=== PATIENT | male | born 1955 | race Caucasian/White ===

== ENCOUNTER 2019-12-12 19:56 | Inpatient (IN) ==
[2019-12-12] MEDS ORDERED: *HR* HYDROcodone/Acet 5/325 mg TABLET PO ONE (20:16)
[2019-12-12 21:27] LABS: Basophils % 0.4 %; Eosinophils # 0.2 K/mcL (0.0-0.6); Eosinophils % 2.1 %; Hematocrit 40.8 % (37.5-50.1); Hemoglobin 13.3 g/dL (12.9-16.9); Immature Granulocytes % 0.1 % (0-4); Lymphocytes % 11.5 %; Mean Corpuscular HGB Conc 32.6 g/dL (31.6-35.5); Mean Corpuscular Hemoglobin 30.6 pg (28.0-33.3); Mean Corpuscular Volume 93.8 fL (83.0-100.0); Monocytes # 1.1 K/mcL (0.0-1.3); Neutrophils # 6.2 K/mcL (1.6-8.9); Platelet Count 230 K/mcL (140-400); Red Blood Count 4.35 M/mcL (4.19-5.50); Red Cell Distribution Width 13.4 % (11.5-14.5); Segmented Neutrophils % 72.9 %; White Blood Count 8.5 K/mcL (4.3-11.1)
[2019-12-12 21:35] LABS: INR 1.1; Prothrombin Time 12.2 Seconds (9.4-12.1)
[2019-12-12 21:37] LABS: Activated Partial Thrombo Time 30.6 Seconds (26.0-36.0)
[2019-12-12 21:50] LABS: BUN/Creatinine Ratio 19 (6-26); Blood Urea Nitrogen 17 mg/dL (8-23); Calcium 9.4 mg/dL (8.6-10.3); Carbon Dioxide 31 mEq/L (23-29); Chloride 103 mEq/L (98-107); Creatine Kinase 45 Units/L (30-223); Ethanol < 10 mg/dL (Less than 10); Glucose 102 mg/dL (70-105); Osmolality,Calculated 290 (280-300); Potassium 3.8 mEq/L (3.5-5.1); Sodium 139 mEq/L (136-145); Troponin I < 0.03 ng/mL (< 0.04); eGFR For African Americans > 60 (> 60); eGFR For Non-African Americans > 60 (> 60)
[2019-12-12] MEDS ORDERED: *HR* LORazepam 1 MG TABLET PO ONE (22:24)
[2019-12-12 22:54] LABS: Bilirubin,Urine Negative (Negative); Blood,Urine Negative (Negative); Clarity,Urine Turbid (Clear); Color,Urine Yellow (Yellow); Glucose,Urine (UA) Normal (Normal); Ketones,Urine Negative (Negative); Leukocyte Esterase,Urine Negative (Negative); Nitrite,Urine Negative (Negative); Protein,Urine Negative (Neg-Trace); Specific Gravity,Urine 1.022 (1.010-1.025); Urobilinogen,Urine Normal (Normal)
[2019-12-12] MEDS ORDERED: Naloxone 0.4 MG/ML INJ IVP PRN (22:57)
[2019-12-12 22:58] LABS: Amphetamine Screen,Urine Negative ng/mL (Cutoff=1000); Barbiturate Screen,Urine Negative ng/mL (Cutoff=200); Benzodiazepines Screen,Urine Negative ng/mL (Cutoff=200); Cannabinoid Screen,Urine Negative ng/mL (Cutoff = 50); Cocaine Screen,Urine Negative ng/mL (Cutoff= 300); Opiate Screen,Urine Negative ng/mL (Cutoff=300); Phencyclidine Screen,Urine Negative ng/mL (Cutoff=25)
[2019-12-12 22:59] LABS: Bacteria,Urine None Seen per hpf (None-Few); Hyaline Casts,Urine None Seen per lpf (None-Few); RBC,Urine 0-3 per hpf (0-3); Squamous Epithelial Cell,Urine Many per lpf (None-Few); WBC,Urine 0-3 per hpf (0-3)
[2019-12-12] MEDS ORDERED: 0.9 % Sodium Chloride 1,000 ML IVC SCH (23:00)
[2019-12-12 23:39] LABS: Amorphous Sediment,Urine Moderate per hpf (None-Few)
[2019-12-12] MEDS ORDERED: *HR* LORazepam 2 MG/ML VIAL IVP ONE (23:47)
[2019-12-13] MEDS ORDERED: *HR* LORazepam 2 MG/ML VIAL IVP ONE (01:07)
[2019-12-13] MEDS ORDERED: Thiamine (B-1) 100 MG in 0.9 % Sodium Chloride 50 ML IVPB STA (01:08)
[2019-12-13] MEDS ORDERED: *HR* LORazepam 2 MG/ML VIAL ONE (01:14)
[2019-12-13] MEDS ORDERED: *HR* Promethazine 25 MG/ML VIAL IVP ONE (02:13)
[2019-12-13 06:46] LABS: Hemoglobin 12.8 g/dL (12.9-16.9); Mean Corpuscular HGB Conc 33.7 g/dL (31.6-35.5); Mean Corpuscular Hemoglobin 30.4 pg (28.0-33.3); Mean Corpuscular Volume 90.3 fL (83.0-100.0); Mean Platelet Volume 11.2 fL (9.4-12.4); Platelet Count 186 K/mcL (140-400); Red Blood Count 4.21 M/mcL (4.19-5.50); Red Cell Distribution Width 13.4 % (11.5-14.5); White Blood Count 12.9 K/mcL (4.3-11.1)
[2019-12-13 06:59] LABS: BUN/Creatinine Ratio 19 (6-26); Blood Urea Nitrogen 14 mg/dL (8-23); Calcium 8.9 mg/dL (8.6-10.3); Carbon Dioxide 27 mEq/L (23-29); Chloride 105 mEq/L (98-107); Glucose 95 mg/dL (70-105); Osmolality,Calculated 282 (280-300); Potassium 4.2 mEq/L (3.5-5.1); Sodium 136 mEq/L (136-145); eGFR For African Americans > 60 (> 60); eGFR For Non-African Americans > 60 (> 60)
[2019-12-13] MEDS ORDERED: Total Joint Mixture (50 ml) INTRAART ONE (12:00)
[2019-12-13] MEDS ORDERED: Acetaminophen 325 MG TABLET PO PRN (14:01)
[2019-12-13] MEDS: lisinopriL 20 MG TABLET PO SCH (16:02)
[2019-12-13] MEDS: Metoprolol XL (24 HR) Succ 50 MG TAB.ER.24H PO SCH (16:02)
[2019-12-13] MEDS ORDERED: Acetaminophen IV 1,000 MG/100 ML INFUS..BTL IVPB ONE (17:25)
[2019-12-14 05:48] LABS: Basophils % 0.2 %; Eosinophils % 0.3 %; Hematocrit 43.9 % (37.5-50.1); Immature Granulocytes % 0.2 % (0-4); Lymphocytes % 8.1 %; Mean Corpuscular HGB Conc 32.8 g/dL (31.6-35.5); Mean Corpuscular Hemoglobin 30.4 pg (28.0-33.3); Mean Corpuscular Volume 92.6 fL (83.0-100.0); Mean Platelet Volume 10.5 fL (9.4-12.4); Monocytes # 1.9 K/mcL (0.0-1.3); Monocytes % 15.3 %; Neutrophils # 9.5 K/mcL (1.6-8.9); Platelet Count 250 K/mcL (140-400); Red Blood Count 4.74 M/mcL (4.19-5.50); Red Cell Distribution Width 13.5 % (11.5-14.5); Segmented Neutrophils % 75.9 %; White Blood Count 12.6 K/mcL (4.3-11.1)
[2019-12-14 05:50] LABS: Hemoglobin 14.4 g/dL (12.9-16.9)
[2019-12-14 06:10] LABS: BUN/Creatinine Ratio 20 (6-26); Blood Urea Nitrogen 16 mg/dL (8-23); Calcium 9.5 mg/dL (8.6-10.3); Carbon Dioxide 24 mEq/L (23-29); Chloride 102 mEq/L (98-107); Glucose 90 mg/dL (70-105); Osmolality,Calculated 281 (280-300); Potassium 4.1 mEq/L (3.5-5.1); Sodium 135 mEq/L (136-145); eGFR For African Americans > 60 (> 60); eGFR For Non-African Americans > 60 (> 60)
[2019-12-14] MEDS: Aspirin Enteric Coated 81 MG Tablet PO SCH ×2 (07:46→07:48)
[2019-12-14] MEDS: lisinopriL 20 MG TABLET PO SCH (07:46)
[2019-12-14] MEDS: Metoprolol XL (24 HR) Succ 50 MG TAB.ER.24H PO SCH (07:47)
[2019-12-14] MEDS ORDERED: Ipratropium/Albuterol Neb 3 ML IH PRN ×2 (07:49→16:09)
[2019-12-14] MEDS ORDERED: ALPRAZolam 1 MG TABLET PO PRN (07:55)
[2019-12-14] MEDS: Piperacillin/Tazobactam 3.375 GM in 0.9 % Sodium Chloride Mini Bag 100 ML IVPB SCH ×4 (08:17→23:56)
[2019-12-14 09:22] LABS: Albumin 4.4 g/dL (3.5-5.7); Albumin/Globulin Ratio 1.5 (1.1-2.2); Bilirubin,Direct 0.2 mg/dL (0.0-0.2); Bilirubin,Indirect 0.8 mg/dL (0.0-1.0); Total Protein 7.4 g/dL (6.4-8.9)
[2019-12-14] MEDS ORDERED: Acetaminophen IV 1,000 MG/100 ML INFUS..BTL ONE (12:34)
[2019-12-14] MEDS ORDERED: Ethanol\\Acetic Acid\\Na Ace\\Ben 1,000 ML IRRIG.SOLN IR ONE (12:38)
[2019-12-14] MEDS ORDERED: *HR* Succinylcholine 200 MG/10 ML VIAL IVP ONE (12:40)
[2019-12-14] MEDS ORDERED: Lidocaine -MPF 2% 2 ML VIAL ONE (12:40)
[2019-12-14] MEDS ORDERED: Lidocaine -MPF 4% 5 ML AMPUL ONE (12:40)
[2019-12-14] MEDS ORDERED: *HR* FentaNYL (PF) 100 MCG/2 ML VIAL ONE (12:41)
[2019-12-14] MEDS ORDERED: *HR* Propofol 200 MG/20 ML VIAL IVP ONE (12:41)
[2019-12-14] MEDS ORDERED: *HR* Magnesium Sulfate 1 GM/2 ML VIAL ONE ×2 (12:45)
[2019-12-14] MEDS ORDERED: *HR* PHENYLEPHRINE 1,000 MCG/10 ML SYRINGE IVP ONE ×2 (14:01→14:57)
[2019-12-14] MEDS ORDERED: Tranexamic Acid 1,000 MG/10 ML VIAL ONE (14:16)
[2019-12-14] MEDS ORDERED: Vancomycin 1,000 MG VIAL ONE (14:19)
[2019-12-14] MEDS ORDERED: EPHEDrine 50 MG/ML VIAL ONE (14:19)
[2019-12-14] MEDS ORDERED: Dexamethasone 4 MG/ML VIAL ONE (14:20)
[2019-12-14] MEDS ORDERED: Ondansetron 4 MG/2 ML VIAL ONE (14:20)
[2019-12-14 15:56] LABS: Hematocrit 37.9 % (37.5-50.1)
[2019-12-14] MEDS ORDERED: Acetaminophen 325 MG TABLET PO PRN (16:09)
[2019-12-14] MEDS ORDERED: Ondansetron 4 MG/2 ML VIAL IVP PRN (16:09)
[2019-12-14] MEDS ORDERED: MOM Conc 10 ML UD.LIQ PO PRN (16:09)
[2019-12-14] MEDS ORDERED: Naloxone 0.4 MG/ML INJ IVP PRN ×2 (16:09)
[2019-12-14] MEDS ORDERED: Sennosides 8.6 MG TABLET PO PRN (16:09)
[2019-12-14] MEDS ORDERED: *HR* Promethazine 25 MG/ML VIAL IVP PRN (16:09)
[2019-12-14] MEDS: Ringers Solution, Lactated 1,000 ML IVC SCH (17:32)
[2019-12-14] MEDS: Ascorbic Acid 500 MG TABLET PO SCH (17:32)
[2019-12-14] MEDS: CeFAZolin 2 GM/120 ML BAG IVPB SCH (21:36)
[2019-12-15] MEDS: ALPRAZolam 1 MG TABLET PO PRN ×3 (00:04→15:41)
[2019-12-15] MEDS: Ringers Solution, Lactated 1,000 ML IVC SCH (05:32)
[2019-12-15] MEDS: CeFAZolin 2 GM/120 ML BAG IVPB SCH (05:32)
[2019-12-15 06:42] LABS: Basophils % 0.1 %; Hematocrit 33.5 % (37.5-50.1); Immature Granulocytes % 0.3 % (0-4); Lymphocytes # 0.8 K/mcL (0.6-4.6); Lymphocytes % 4.5 %; Mean Corpuscular HGB Conc 32.8 g/dL (31.6-35.5); Mean Corpuscular Hemoglobin 30.7 pg (28.0-33.3); Mean Corpuscular Volume 93.6 fL (83.0-100.0); Mean Platelet Volume 10.7 fL (9.4-12.4); Monocytes # 2.5 K/mcL (0.0-1.3); Monocytes % 13.5 %; Platelet Count 205 K/mcL (140-400); Red Blood Count 3.58 M/mcL (4.19-5.50); Red Cell Distribution Width 13.7 % (11.5-14.5); Segmented Neutrophils % 81.6 %; White Blood Count 18.4 K/mcL (4.3-11.1)
[2019-12-15 06:47] LABS: BUN/Creatinine Ratio 28 (6-26); Blood Urea Nitrogen 23 mg/dL (8-23); Calcium 8.4 mg/dL (8.6-10.3); Carbon Dioxide 25 mEq/L (23-29); Chloride 104 mEq/L (98-107); Glucose 114 mg/dL (70-105); Magnesium 2.2 mg/dL (1.6-2.6); Osmolality,Calculated 283 (280-300); Potassium 4.1 mEq/L (3.5-5.1); Sodium 134 mEq/L (136-145); eGFR For African Americans > 60 (> 60); eGFR For Non-African Americans > 60 (> 60)
[2019-12-15] MEDS: lisinopriL 20 MG TABLET PO SCH (07:56)
[2019-12-15] MEDS: Ascorbic Acid 500 MG TABLET PO SCH ×2 (07:56→15:41)
[2019-12-15] MEDS: Metoprolol XL (24 HR) Succ 50 MG TAB.ER.24H PO SCH (07:57)
[2019-12-15] MEDS: Multivit/Ca/Min/Fe/FA 1 TAB TABLET PO SCH (07:57)
[2019-12-15] MEDS: Piperacillin/Tazobactam 3.375 GM in 0.9 % Sodium Chloride Mini Bag 100 ML IVPB SCH (08:04)
[2019-12-15] MEDS: Nicotine 14 MG PATCH.TD24 TD SCH (19:37)
[2019-12-16] MEDS: ALPRAZolam 1 MG TABLET PO PRN (03:54)
[2019-12-16] MEDS: Metoprolol XL (24 HR) Succ 50 MG TAB.ER.24H PO SCH (08:14)
[2019-12-16] MEDS: Ascorbic Acid 500 MG TABLET PO SCH (08:14)
[2019-12-16] MEDS: Multivit/Ca/Min/Fe/FA 1 TAB TABLET PO SCH (08:14)
[2019-12-16] MEDS: lisinopriL 20 MG TABLET PO SCH (08:15)
[2019-12-16] MEDS: Nicotine 14 MG PATCH.TD24 TD SCH (08:15)
[2019-12-16 10:54] VITALS: BP 105/63
[2019-12-16 10:56] LABS: Basophils % 0.2 %; Eosinophils # 0.1 K/mcL (0.0-0.6); Eosinophils % 0.9 %; Hemoglobin 10.7 g/dL (12.9-16.9); Immature Granulocytes % 0.3 % (0-4); Lymphocytes # 1.1 K/mcL (0.6-4.6); Lymphocytes % 9.2 %; Mean Corpuscular HGB Conc 31.5 g/dL (31.6-35.5); Mean Corpuscular Hemoglobin 30.1 pg (28.0-33.3); Mean Corpuscular Volume 95.5 fL (83.0-100.0); Mean Platelet Volume 10.8 fL (9.4-12.4); Monocytes # 1.6 K/mcL (0.0-1.3); Neutrophils # 8.8 K/mcL (1.6-8.9); Platelet Count 235 K/mcL (140-400); Red Blood Count 3.56 M/mcL (4.19-5.50); Red Cell Distribution Width 13.9 % (11.5-14.5); Segmented Neutrophils % 75.4 %; White Blood Count 11.7 K/mcL (4.3-11.1)
[2019-12-16 12:33] LABS: BUN/Creatinine Ratio 27 (6-26); Blood Urea Nitrogen 20 mg/dL (8-23); Calcium 8.4 mg/dL (8.6-10.3); Carbon Dioxide 22 mEq/L (23-29); Chloride 104 mEq/L (98-107); Glucose 104 mg/dL (70-105); Magnesium 2.2 mg/dL (1.6-2.6); Osmolality,Calculated 281 (280-300); Phosphorous 2.7 mg/dL (2.7-4.5); Potassium 4.7 mEq/L (3.5-5.1); Sodium 134 mEq/L (136-145); eGFR For African Americans > 60 (> 60); eGFR For Non-African Americans > 60 (> 60)
== END 2019-12-16 12:36 | DRG 301 ==
LOC: EMEROOARM 19:56 → 3NENU 19:56 → SUATTDRO 12-13 13:27
PROVIDERS: ADMIT Student in an Organized Health Care Education/Training Program; ATTEND Internal Medicine